=== PATIENT | male | born 1960 | race African-American/Black ===

== ENCOUNTER 2016-05-01 18:43 | Inpatient (IN) | payer SELFPAY ==
--- NOTE | ~2016-05-01 | HP ---
History And Physical [place] [id number] [facility] [place]. [address] NAME: TRISTIN DIAZ : 64 STATUS : ADM IN [facility]#: [id number] AGE: 55 ADM/REG DATE : 05/01/16 MR#: [id number] REPORT SERV DATE: 05/02/16 DICTATED BY: TYLER DESHPANDE DATE: 05/01/16 REPORT STATUS : Draft TRANSCRIBED BY: MODL DATE: 05/01/16 DATE OF ADMISSION: 05/01/2016 CHIEF COMPLAINT: Right leg weakness and uncontrolled high blood pressures. HISTORY OF PRESENT ILLNESS: This is a 55-year-old gentleman with history of hypertension and smoking presenting with a right leg weakness and uncontrolled blood pressures. The patient actually had started noticing right-sided leg weakness since about three days ago. The patient simply thought that it may go away with time, and thus, he did not come to the ER then. Along with that the patient started noticing that his blood pressure was increasingly high at home over 200 systolic. The patient also experienced some dizziness. The patient finally decided to come to the ER for further evaluation and care. The patient otherwise denies any focal neurologic deficits. The patient denies any aphasia, dysphagia, or dysarthria. The patient denies any unilateral weakness or facial droop. The patient also denies any chest pain, palpitations, or shortness of breath. In the ER, patient was found to be extremely hypertensive with blood pressure of 212/133. The patient was otherwise hemodynamically stable. Initial lab evaluation was all very benign. CT of the head surprisingly was nonacute. Internal Medicine consultation was requested for admission of patient for further evaluation and care. Upon reviewing pertinent history, patient is not currently on any antihypertensives at home. As a matter of fact, the patient does not have a primary care physician, and he has not followed up with anybody in over a couple of years. REVIEW OF SYSTEMS: The patient denies any fevers or chills. Also, 14-point review of systems reviewed and negative other than mentioned above. MEDICATIONS: None. ALLERGIES: LISINOPRIL. PAST MEDICAL HISTORY: Hypertension. PAST SURGICAL HISTORY: Hernia repairs. FAMILY HISTORY: Multiple sclerosis in his mother. SOCIAL HISTORY: The patient smokes about half a pack per day. The patient also consumes alcohol occasionally. The patient does not use any illicit drugs. The patient lives at home by himself and he is disabled from his past injuries that gave him bilateral ankle and foot pains. PHYSICAL EXAMINATION: VITAL SIGNS: Temperature 97.9, blood pressure 212/133, pulse 74, respiratory rate is 13, and History And Physical [address] [place]. [address] NAME: TRISTIN DIAZ : 64 STATUS : ADM IN PAT#: [id number] AGE: 55 ADM/REG DATE : 05/01/16 MR#: [id number] REPORT SERV DATE: 05/02/16 DICTATED BY: TYLER DESHPANDE DATE: 05/01/16 REPORT STATUS : Draft TRANSCRIBED BY: MODWendy DATE: 05/01/16 saturating 99% on room air. NEUROLOGIC: The patient is alert and oriented x3. The patient has no other focal neurologic deficits other than 3/5 weakness of his right lower extremity. GENERAL: The patient is awake, does not appear to be in any acute distress, and he is cooperative. NECK: No JVD. No lymphadenopathy. Normal thyroid. CHEST: No midline sternotomy scar and no tenderness to palpation. LUNGS: Clear to auscultation bilaterally with normal respiratory effort on room air. CARDIOVASCULAR: Regular rate and rhythm with no murmurs, rubs, or gallops, and PMI is nondisplaced. ABDOMEN: Soft, nontender, with active bowel sounds and no organomegaly. EXTREMITIES: No edema. Normal distal pulses. No calf tenderness. SKIN: Clean, dry, warm, and intact. LABORATORY DATA: Sodium is 142, potassium 3.7, chloride 109, BUN 13. Creatinine is 1.10, glucose 103, calcium 8.9, magnesium 1.9. White blood cell count is 4.2, hemoglobin 15.0, and platelets 256. INR is 1.0. Troponin is 0.02. CT of the head was actually nonacute and unremarkable. ASSESSMENT: This is a 55-year-old gentleman with history of hypertension, smoking, presenting with a right lower extremity weakness and uncontrolled hypertension. 1. Right lower extremity weakness, concerning for possible essential neurologic event, however, interestingly enough, CT of the head was nonacute despite him having had the symptoms since three days ago. Otherwise, I do not suspect spinal injuries for his problems as patient has not had any chronic back pains or any issues with his back. 2. Hypertension that is uncontrolled and untreated as an outpatient at baseline. 3. Smoking. 4. Poor outpatient followup. PLAN: The plan is to admit the patient under telemetry monitoring. The patient will be monitored under neurologic monitoring per protocol. I will check his hemoglobin A1c, lipid panel, and serial troponins. The patient will be started on aspirin, statin. The patient will not be started on BERTHA inhibitor because he is allergic to lisinopril. The patient will also be given p.r.n. antihypertensives keeping in mind permissive hypertension. I will also check an MRI of his brain as well as carotid ultrasounds. Pending the above, I will consider getting Neurology consultation. In any case, the patient will be seen and evaluated by Physical therapy. For smoking cessation, counseling was provided. Standard DVT prophylaxis. The patient is full code at this time. ANNY/EMILIA Tyler Deshpande MD / [id number] History And Physical [address] [address] NAME: TRISTIN DIAZ : 64 STATUS : ADM IN [facility]#: [id number] AGE: 55 ADM/REG DATE : 05/01/16 MR#: [id number] REPORT SERV DATE: 05/02/16 DICTATED BY: TYLER DESHPANDE DATE: 05/01/16 REPORT STATUS : Draft TRANSCRIBED BY: EMILIA DATE: 05/01/16 CC: Kymberly Gomes M.D.
--- NOTE | ~2016-05-01 | CN ---
Consultation Report [facility] [address] [place]. [address] NAME: TRISTIN DIAZ : 64 STATUS : ADM IN PAT#: [id number] AGE: 55 ADM/REG DATE : 05/01/16 MR#: [id number] REPORT SERV DATE: 05/03/16 DICTATED BY: MARGY GAONA DATE: 05/03/16 REPORT STATUS : Draft TRANSCRIBED BY: EMILIA DATE: 05/03/16 NEUROLOGICAL CONSULTATION-EVALUATION DATE OF CONSULTATION: 05/03/2016 HISTORY OF PRESENT ILLNESS: This is a 55-year-old male with known history of hypertension, who presented to the emergency room with complaints of dizziness and right leg weakness. The patient's blood pressure on admission was 212/133. The patient stated that his symptoms started several days prior to admission, where he was not "feeling well." The patient stated that he has had right weakness preceding his hospitalization, however, it has gotten worse. The patient is a poor historian, and his description is quite vague and difficult to evaluate. PAST MEDICAL HISTORY: Significant for history of hypertension. No prior history of CVA or TIA. SOCIAL HISTORY: The patient smokes one pack of cigarettes, which he stated he smokes in several days, he is "cutting down." Denied regular use of alcohol. The patient is currently unemployed. He has had some injuries in the past, where he has had difficulty with his ankles. FAMILY HISTORY: Significant for history of multiple sclerosis in the patient's mother. ALLERGIES: NO KNOWN ALLERGY. PAST SURGICAL HISTORY: Hernia repairs. REVIEW OF SYSTEMS: The patient has had history of varicose veins affecting the right leg. The patient stated that his right leg hurts when he puts pressure on it. The pain goes all the way to his right hip area. The patient stated that he has difficulty standing on it. Since the admission, the patient's workup included MRI of the brain, which was negative for acute changes. Small microvascular changes, most likely hypertensive in origin, was seen and appeared to be old. The patient's current blood pressure is ranging between 160 and 170 systolic and 90 diastolic. PHYSICAL EXAMINATION: VITAL SIGNS: Blood pressure 172/92, pulse was 54, respirations 18, temperature was 98.2. HEAD AND NECK: Showed him to be normocephalic. There was no evidence of trauma. Auscultation of the head and neck showed no evidence of bruits. EYES: Sclerae are not icteric. Conjunctivae were pink. Neck was supple. There was no Kernig or Brudzinski. Cervical range of motion was not impaired. ENT: Unremarkable, except for slightly smaller airway. CHEST: Symmetrical. Consultation Report [place] [address] [address] [facility] [place] [facility] [place] [address] NAME: TRISTIN DIAZ : 64 STATUS : ADM IN [facility]#: [id number] AGE: 55 ADM/REG DATE : 05/01/16 MR#: [id number] REPORT SERV DATE: 05/03/16 DICTATED BY: MARGY GAONA DATE: 05/03/16 REPORT STATUS : Draft TRANSCRIBED BY: EMILIA DATE: 05/03/16 LUNGS: Clear to auscultation. HEART: Regular S1, S2. No S3, S4, or gallops were noted. EXTREMITIES: Showed significant tortuosity of the peripheral veins in the right leg as compared to the left. Peripheral pulses were intact. SKIN: Clear. NEUROLOGICAL: The patient was alert and oriented to self, time, and place. Appeared to be poor historian in terms of details of description of his symptoms and duration of his symptoms. Speech was fluent. There was no evidence of aphasia or dysarthria. Thought content and mood appeared appropriate. Cranial nerve examination II through XII: Visual mercer on confrontation were intact. Funduscopic exam showed no evidence of papilledema or hemorrhages. Pupils were 3 mm, equal and reactive to light and accommodation. Extraocular movements were full. There was no nystagmus. No limitation of upward or downward gaze noted. No significant facial asymmetry was present, and the rest of cranial nerve examination was within normal range. Motor exam: Muscle bulk and tone was normal. Right arm and right leg were difficult to examine. The patient had decreased voluntary effort on testing of both the upper and lower extremities. The patient had difficulty standing, did not put pressure on the right leg at all. Deep tendon reflexes were symmetrical, 2/2, slightly brisk on left ankle jerk. No clonus was noted. Sensory test was difficult to perform, and cerebellar exam showed no signs of ataxia. IMPRESSION: The patient's symptoms and findings are difficult to place, especially with a normal MRI of the brain. The patient definitely has decreased voluntary effort on testing of the right upper and lower extremity, which was difficult to evaluate. The patient did not put pressure on the right leg and stated that the pain radiated to the right hip. Would recommend: 1. Obtain x-rays of both hips to compare right and left, which may help in evaluation of possible findings of degenerative changes. 2. MRI of the lumbosacral spine to rule out any compressive pathology that would create radicular or sciatic presentation. 3. PT and OT to evaluate the patient. 4. Recommend to improve blood pressure control without dropping it precipitously. 5. In addition, the patient can be followed on outpatient basis with Neurology, who can provide answers with possible EMG and nerve conduction study of the right leg. 6. Recommend to provide smoking cessation information and stroke risk factor education prior to the discharge. Thank you for allowing me to participate in this patient's care. KAITLYNN/EMILIA Margy Gaona MD Consultation Report [address] [address] NAME: TRISTIN DIAZ : 64 STATUS : ADM IN [facility]#: [id number] AGE: 55 ADM/REG DATE : 05/01/16 MR#: [id number] REPORT SERV DATE: 05/03/16 DICTATED BY: MARGY GAONA DATE: 05/03/16 REPORT STATUS : Draft TRANSCRIBED BY: EMILIA DATE: 05/03/16 / [id number] CC: Kymberly Gomes M.D.
--- NOTE | ~2016-05-01 | DS ---
Discharge Summary [facility] [address] [place]. [address] NAME: TRISTIN DIAZ : 64 STATUS : DIS IN PAT#: [id number] AGE: 55 ADM/REG DATE : 05/01/16 MR#: [id number] REPORT SERV DATE: 05/05/16 DICTATED BY: RENA HEART DATE: 05/04/16 REPORT STATUS : Draft TRANSCRIBED BY: MODWendy DATE: 05/04/16 ADMISSION DATE: 05/01/2016 DISCHARGE DATE: 05/04/2016 DISPOSITION: Discharged to home. CONDITION ON DISCHARGE: Stable. ADVISED UPON ON DISCHARGE: To follow up with a new PCP that we are trying to schedule this patient with, within the next three to four weeks. DIAGNOSES ON DISCHARGE: 1. Right lower extremity and right upper extremity weakness, nonspecific-resolving. 2. All his tests regarding workup for this weakness has come back negative including CT scan of the brain, MRI of the brain, MRA of the head and neck, and also MRI of the lumbar spine have all come back negative with no acute findings or anything else to explain the weakness in the right lower extremity. Besides, the right upper extremity weakness has resolved and the right lower extremity weakness is resolving according to the patient. 3. Severe uncontrolled hypertension secondary to cocaine use-the patient admits to cocaine use finally. The patient has been strongly advised to stop cocaine use as of now and the risks and consequences have been explained to him. Since he is positive for cocaine and he is bradycardic-the patient cannot have a stress test. The patient cannot be on beta blockers either. Hence, he is being discharged home on amlodipine 10 mg once a day, chlorthalidone 50 mg once a day, and Isordil 10 mg p.o. t.i.d. A month's supply of all these prescriptions have been given to the patient and the patient has been stressed to comply with these medications. 4. History of continuous cocaine use-again the patient has been advised to stop doing this. 5. Probable inferior myocardial ischemia with bradycardia-the patient is not symptomatic anymore and he is not a candidate for stress test now, but his 2D echocardiogram has come back with an ejection fraction of about 55%, which is good and does not show any acute wall motion abnormalities. Hence, he is being discharged home and hopefully, he will comply with medications. He will be sent home on amlodipine 10 mg once a day, aspirin 325 mg once a day, Lipitor 80 mg once a day, chlorthalidone 50 mg once a day, and Isordil 10 mg p.o. t.i.d. and a whole month supply of prescriptions for all these medications have been given. We will try and make an appointment for him with an outpatient doctor within the next three to four weeks before we send him. BRIEF HOSPITAL COURSE: Mr. Diaz is a 55-year-old male patient who came in with right leg weakness and uncontrolled high blood pressure. He noticed right arm and right leg weakness, but the right arm weakness completely resolved, but the right leg weakness somewhat persisted and the patient had a clumsy gait and decided to come in because he was thinking that he was having a stroke. He did not admit initially to cocaine use. Because when I see the H and P by Dr. Tyler Deshpande, it states that the patient does not use any illicit drugs. However, during the course of hospitalization, when his blood pressure Discharge Summary [address] [place]. [address] NAME: TRISTIN DIAZ : 64 STATUS : DIS IN PAT#: [id number] AGE: 55 ADM/REG DATE : 05/01/16 MR#: [id number] REPORT SERV DATE: 05/05/16 DICTATED BY: RENA HEART DATE: 05/04/16 REPORT STATUS : Draft TRANSCRIBED BY: EMILIA DATE: 05/04/16 came back melchor-high and the patient was bradycardic, and appeared a little confused and agitated, and also since all his neurological workup came back negative, we did a urine drug screen on him and this came back positive for cocaine. 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 He has been strongly advised against doing this and also legal consequences for this. The patient has also been advised of the medical risks involved with cocaine use including strokes, myocardial infarctions, and , and he understands. Hence his blood pressure is somewhat better now and hence he is being sent home on the above medications. Neurology has been consulted and Cardiology has been consulted, and they agree with the above plan. At this time, the patient is not a candidate for stress test given active cocaine in his system and also he is bradycardic. However, his 2D echocardiogram has come back with no acute wall motion abnormalities. Test done during this hospitalization include the followin. The most recent CBC that was done on 05/02/2016, shows a completely normal CBC and a completely normal electrolyte profile. Cholesterol profile shows HDL of 44, LDL of 118, which is why the patient is being placed on Lipitor 80 mg once a day. Troponin I is less than 0.02. 2. Hemoglobin A1c is 5.2. 3. Chest x-ray portable shows no acute cardiopulmonary abnormality. 4. Folic acid, Vitamin B12 are normal, within normal range. TSH is normal and the patient has had the following radiological studies. CT scan of the brain without contrast that came back with no acute cardiopulmonary abnormality. Bilateral carotid ultrasound that came back with no significant stenosis. MRI of the brain without contrast that came back with no evidence of any acute stroke. Echocardiogram that did not show any acute wall motion abnormalities and an ejection fraction of 55%. Bilateral venous Doppler ultrasound of both lower extremities-negative for blood clots, and also the patient had an MRI of the lumbar spine without contrast that shows degenerative disk disease, but definitely no evidence of any spinal cord involvement and no evidence of myelopathy at this time. Hence, we cannot find an explanation for this gentleman's right lower extremity weakness at this time. Besides his right leg weakness has improved. So somehow if this is related to drug use, we have advised him to stop the cocaine use. I have spent about 40 minutes in counseling this patient including [id number] encounter and summarizing this discharge including summarizing labs, radiological studies, medications etc. RRA/MODL Rena Heart M.D. / [id number] Discharge Summary [address] [place] [facility] [place] [address] NAME: TRISTIN DIAZ : 64 STATUS : DIS IN PAT#: [id number] AGE: 55 ADM/REG DATE : 05/01/16 MR#: [id number] REPORT SERV DATE: 05/05/16 DICTATED BY: RENA HEART DATE: 05/04/16 REPORT STATUS : Draft TRANSCRIBED BY: MODL DATE: 05/04/16 CC: Rena Heart M.D.
--- NOTE | ~2016-05-01 | CN ---
Consultation Report [facility] [address] [place]. [address] NAME: TRISTIN DIAZ : 64 STATUS : DIS IN PAT#: [id number] AGE: 55 ADM/REG DATE : 05/01/16 MR#: [id number] REPORT SERV DATE: 05/05/16 DICTATED BY: MATTHEW MEDEROS DATE: 05/02/16 REPORT STATUS : Draft TRANSCRIBED BY: MODL DATE: 05/02/16 CONSULTATION DATE OF CONSULTATION: 05/02/2016 REASON FOR CONSULTATION: Questionable symptomatic bradycardia. PRIMARY CREATIVE SERVICES PRODUCER: None. HISTORY OF PRESENT ILLNESS: Mr. Diaz is a 55-year-old gentleman with a history of untreated hypertension as well as active tobacco smoking, who presented to [facility] yesterday with complaints of ongoing dizziness as well as right leg weakness over the past several days. He is a poor historian. He intermittently endorses having some chest discomforts as well. He states that he had been doing just fine up until several days ago. At which point in time, he started to become dizzy at home. He describes as the room spinning as well as feeling lightheaded at the same time. He denies having any other symptoms including shortness of breath, palpitations, or blacking out. He is unable to think of any reason as to why this would have happened. He does not have a primary care physician and has not seen any physicians in the recent past as far as he can remember. He otherwise does not provide any further details. PAST MEDICAL HISTORY: As above. ALLERGIES: LISINOPRIL. SOCIAL HISTORY: The patient lives alone and functions independently under normal circumstances. He admits to using drugs (marijuana), active tobacco smoking, and daily alcohol ingestion. FAMILY HISTORY: Noncontributory for premature cardiovascular disease. REVIEW OF SYSTEMS: Poorly reliable with nonspecific symptoms including but not limited to, dizziness, lightheadedness, chest pain, right leg weakness, and unsteadiness. PHYSICAL EXAMINATION: VITAL SIGNS: Blood pressure 176/92, pulse of 50s and sinus, temperature 98.0, T-max afebrile. GENERAL: No acute distress. Well-developed well-nourished. NEUROLOGIC: Awake, alert, and oriented x3. No obvious focal deficits. However, currently being examined with Doppler. Therefore, limited exam. HEAD AND NECK: Normocephalic atraumatic. Moist mucous membranes. RESPIRATORY: Nonlabored breathing. No wheezes, rales, or rhonchi. CARDIAC: Regular rate and rhythm. No murmurs, rubs, or gallops. Normal S1, S2. ABDOMEN: Soft, nontender, nondistended. No rebound or guarding. EXTREMITIES: Warm and Consultation Report [facility] [address] [place]. [address] NAME: TRISTIN DIAZ : 64 STATUS : DIS IN PAT#: [id number] AGE: 55 ADM/REG DATE : 05/01/16 MR#: [id number] REPORT SERV DATE: 05/05/16 DICTATED BY: MATTHEW MEDEROS DATE: 05/02/16 REPORT STATUS : Draft TRANSCRIBED BY: EMILIA DATE: 05/02/16 dry. No edema. 1+ to 2+ peripheral pulses bilaterally. SKIN: Grossly intact without obvious active rash. PERTINENT TEST FINDINGS: EKG with sinus rhythm, first-degree AV delay, and left axis deviation, septal T-wave, anterolateral and inferior T-wave inversions. Carotid Doppler preliminary without significant disease. Right lower extremity Doppler preliminary without significant findings. Potassium 3.7, creatinine 1.1, GFR 86, magnesium 1.9. Hemoglobin 14.9. Troponin 0.02 and less than 0.02. IMPRESSION AND PLAN: Mr. Diaz is a 55-year-old gentleman with a history of untreated hypertension and active tobacco smoking, who has not seen a physician in the recent past, who presents to [facility] with symptoms nonspecified symptoms including but not limited dizziness/lightheadedness, vision changes, right leg weakness, and occasional chest- pressures, of unclear etiology. He has ruled out for acute myocardial infarction, and has had an unremarkable workup thus far from a neurologic perspective. I do not believe that he has symptomatic bradycardia per se, because although his telemetry and EKG demonstrate a sinus rhythm at 40 to 60 beats per minute. He shows reasonably good evidence of chronotropic competence as his heart rate increases on telemetry from [id number] into the 60s. Accordingly, I have the following recommendations by problem below: 1. Nonspecified dizziness - unclear etiology. Given EKG findings of septal Q-waves as well as anterolateral and inferior T-wave inversions and intermittent endorsement of chest pains, it will be fine to check a stress test to definitively rule out ischemia as a contributing factor here. Otherwise, it will be important to check an echocardiogram, as well as thyroid function tests, and continue workup to address his gait unsteadiness from a neurologic perspective. 2. Hypertension - his blood pressure is markedly elevated right now. It would be important to treat his blood pressure to get this under better control. 3. Bradycardia - sinus and stable. With evidence of chronotropic competence, I do not believe this is contributing at this time; however, further recommendations regarding the specific problem will follow findings on his stress test and echocardiogram as well as other workup from a neurologic perspective. VR/EMILIA Matthew Mederos MD / [id number] CC: Consultation Report [address] [address] NAME: TRISTIN DIAZ : 64 STATUS : DIS IN PAT#: [id number] AGE: 55 ADM/REG DATE : 05/01/16 MR#: [id number] REPORT SERV DATE: 05/05/16 DICTATED BY: MATTHEW MEDEROS DATE: 05/02/16 REPORT STATUS : Draft TRANSCRIBED BY: EMILIA DATE: 05/02/16 Kymberly Gomes M.D. NO PCP
[2016-05-01 15:53] LABS: BASOPHILS ABSOLUTE 0.04 10/3/uL (0.0-0.16); EOSINOPHILS 6.9 %; EOSINOPHILS ABSOLUTE 0.29 10/3/uL (0.0-0.53); HEMATOCRIT 44.1 % (40.0-51.0); LYMPHOCYTES 47.5 %; LYMPHOCYTES ABSOLUTE 1.99 10/3/uL (0.67-4.30); MANUAL DIFF NO %; MEAN CORPUSCULAR HEMOGLOB 30.5 pg (26.0-34.0); MEAN CORPUSCULAR VOLUME 89.8 fL (80-100); MONOCYTES 11.2 %; MONOCYTES ABSOLUTE 0.47 10/3/uL (0.21-1.20); NEUTROPHILS 33.4 %; PLATELET COUNT 256 10/3/uL (150-400); RBC DISTRIBUTION WIDTH 13.7 % (12.0-16.0); RED CELL COUNT 4.91 10/6/uL (4.7-6.1); WHITE BLOOD CELLS 4.2 10/3/uL (4.5-10.5)
[2016-05-01 16:01] LABS: PARTIAL THROMBO TIME 29.3 SEC (22.5-37.2); PROTIME (NOT ORD) 13.3 SEC (12.0-14.5)
[2016-05-01 16:09] LABS: CALCIUM, SERUM 8.9 MG/DL (8.5-10.4); CHEST PAIN PROFILE TAT 0 Hrs 20 Mins; CHLORIDE, SERUM 109 MMOL/L (96-112); CO2 (CARBON DIOXIDE) 24 MMOL/L (24-34); GFR AFRICAN AMERICAN 88 ML/MIN (>=60); GFR NON AFRICAN AMERICAN 76 ML/MIN (>=60); POTASSIUM, SERUM 3.7 MMOL/L (3.5-5.3); SODIUM, SERUM 142 MMOL/L (135-148); TROPONIN I 0.02 NG/ML (<0.05)
[2016-05-01 16:11] LABS: BUN (BLOOD UREA NITROGEN) 13 MG/DL (6-23); GLUCOSE, SERUM 103 MG/DL (60-99)
[2016-05-01] MEDS ORDERED: *DENIES (19:46)
[2016-05-02 06:02] LABS: BASOPHILS 0.5 %; BASOPHILS ABSOLUTE 0.03 10/3/uL (0.0-0.16); EOSINOPHILS 4.7 %; EOSINOPHILS ABSOLUTE 0.28 10/3/uL (0.0-0.53); HEMATOCRIT 44.5 % (40.0-51.0); HEMOGLOBIN 14.9 g/dL (13.6-17.8); IMMATURE GRANULOCYTES 0.2 %; IMMATURE GRANULOCYTES ABSOLUTE 0.01 10/3/uL (0.0-0.11); LYMPHOCYTES 36.8 %; LYMPHOCYTES ABSOLUTE 2.19 10/3/uL (0.67-4.30); MANUAL DIFF NO %; MEAN CORPUS HGB CONC 33.5 g/dL (32.0-36.0); MEAN CORPUSCULAR HEMOGLOB 30.7 pg (26.0-34.0); MEAN CORPUSCULAR VOLUME 91.8 fL (80-100); MEAN PLATELET VOLUME 9.8 fL (9.2-13.0); MONOCYTES 11.1 %; MONOCYTES ABSOLUTE 0.66 10/3/uL (0.21-1.20); NEUTROPHILS 46.7 %; NEUTROPHILS ABSOLUTE 2.78 10/3/uL (2.02-8.40); PLATELET COUNT 262 10/3/uL (150-400); RBC DISTRIBUTION WIDTH 13.5 % (12.0-16.0); RED CELL COUNT 4.85 10/6/uL (4.7-6.1)
[2016-05-02 06:08] LABS: BUN (BLOOD UREA NITROGEN) 13 MG/DL (6-23); CALCIUM, SERUM 8.8 MG/DL (8.5-10.4); CHLORIDE, SERUM 106 MMOL/L (96-112); CHOL/HDL RATIO(NOT ORDER) 4.3 (0-5); CO2 (CARBON DIOXIDE) 25 MMOL/L (24-34); CREATININE 1.13 MG/DL (0.70-1.30); GFR AFRICAN AMERICAN 86 ML/MIN (>=60); GFR NON AFRICAN AMERICAN 74 ML/MIN (>=60); GLUCOSE, SERUM 103 MG/DL (60-99); HDL CHOLESTEROL 44 MG/DL (> 39); LDL CHOLESTEROL 118 MG/DL (< 130); NON-HDL CHOLESTEROL 147 MG/DL (< 160); POTASSIUM, SERUM 3.7 MMOL/L (3.5-5.3); SODIUM, SERUM 141 MMOL/L (135-148); TRIGLYCERIDE 146 MG/DL (< 150); TROPONIN I <0.02 NG/ML (<0.05)
[2016-05-02 06:10] LABS: CHOLESTEROL 191 MG/DL (< 200)
[2016-05-02 12:24] LABS: TROPONIN I <0.02 NG/ML (<0.05)
[2016-05-02 17:00] LABS: FOLATE 17.2 NG/ML (>5.2)
[2016-05-03 15:07] LABS: AMPHETAMINES (NOT ORD) NEG (NEG); BARBITURATES (NOT ORDERED NEG (NEG); BENZODIAZEPINES (NOT ORD) NEG (NEG); CANNABINOIDS (THC) NEG (NEG); COCAINE (NOT ORDERED) POS (NEG); OPIATES NEG (NEG); PHENCYCLIDINE(PCP) NEG (NEG); TRICYCLICS NEG (NEG)
[2016-05-03 18:16] LABS: FOLATE 18.2 NG/ML (>5.2)
[2016-05-04] MEDS ORDERED: NORV10 PO (13:20)
[2016-05-04] MEDS ORDERED: ASA5GR PO (13:21)
[2016-05-04] MEDS ORDERED: LIPITOR80 MG PO (13:21)
[2016-05-04] MEDS ORDERED: ISORDIL10 PO (13:26)
[2016-05-04] MEDS ORDERED: CHLORTHALID50 MG PO (13:27)
== END 2016-05-04 14:22 | disposition home or self-care (01) | DRG 918 ==
LOC: ER 18:43 → 1SO 23:30
PROVIDERS: Emergency Medicine; Internal Medicine
DX: T40.5X1A Poisoning by cocaine, accidental (unintentional), initial encounter (principal); I10 Essential (primary) hypertension; R00.1 Bradycardia, unspecified; R20.9 Unspecified disturbances of skin sensation; R42 Dizziness and giddiness; H53.9 Unspecified visual disturbance; M62.81 Muscle weakness (generalized); F14.988 Cocaine use, unspecified with other cocaine-induced disorder; I25.9 Chronic ischemic heart disease, unspecified; F17.210 Nicotine dependence, cigarettes, uncomplicated; Z79.82 Long term (current) use of aspirin; Z79.899 Other long term (current) drug therapy; Z88.8 Allergy status to other drugs, medicaments and biological substances
CPT/HCPCS: 70450; 70551; 71010; 72148; 73521; 80048; 80061; 80305; 82607; 82746; 83036; 83735; 84443; 84484; 85025; 85610; 85730; 86592; 87389; 93005; 93306; 93880; 93970; 97110-GP; 97116-GP; 97161-GP; 99285; A9270-GY; J0360